=== PATIENT | male | born 1965 | race Caucasian/White ===

== ENCOUNTER 2024-03-28 09:58 | Outpatient (CLI) | payer MEDICARE, SELFPAY ==
--- NOTE | ~2024-03-28 | CT_ITS ---
CT Scan of the Chest without Contrast: Clinical Indication: Lung cancer screening, nicotine dependence Technique: Contiguous sections were acquired throughout the chest without intravenous contrast. Dose reduction technique was used on this scan by utilizing automated exposure control and iterative recon struction technique. The dose-length product (DLP) was 224.40 mGy-cm. Findings: There is no evidence of any significant mediastinal, hilar or axillary lymphadenopathy. Coronary leisa ry calcification present. There is no evidence of pleural or pericardial effusion. There is moderate emphysema at the lung apices/upper lobes with mild chronic interstitial changes in the lungs. Small calcified left upper lobe granuloma present. No discrete noncalcified pulmonary nodu le seen. Images through the upper abdomen reveal no abnormalities. There is DISH of the thoracic spine. Impression: Lung RADS 2: Benign appearance. [address] advised. Reviewed, dictated and finalized at [facility]. VISION SERVICER Impression: Lung RADS 2: Benign appearance. [address] advised.
--- OUTSIDE RECORDS SUMMARY | 2024-03-28 10:25 | XMS_ITS | Patient Health Record ---
Author Organization [facility] Address [address] [place] [address] Care Team Providers Care Urban Forester Name Role Phone Cornelius CHAMPION, Kodi Unavailable Unavailable Reason For Referral No Information Plan Of Treatment No Information Insurance Providers Payer Name Payer Address Payer Phone Subscriber Number Group Number Insured Name Patient Relationship to Insured Coverage Start Date Coverage End Date [facility] [address] [address] [place] [address] [id number] Rodríguez Gloria Self - patient is the insured 0
== END 2024-03-28 09:59 | disposition home or self-care (01) ==
LOC: ANHIMG 10:06
PROVIDERS: PCP Internal Medicine; Visit Provider Internal Medicine
DX: Z12.2 Encounter for screening for malignant neoplasm of respiratory organs (principal); F17.210 Nicotine dependence, cigarettes, uncomplicated
CPT/HCPCS: 71271

== ENCOUNTER 2024-05-03 10:29 | Outpatient (CLI) | payer MEDICARE, SELFPAY ==
--- NOTE | 2024-05-03 10:42 | ECG_ITS ---
Test Date: 2024-05-03 10:56:06 Measurements Intervals [place] Rate: 75 P: 48 ME: 176 QRS: 10 QRSD: 112 T: 38 QT: 349 QTc: 391 Interpretive Statements SINUS RHYTHM ANTEROSEPTAL MYOCARDIAL INFARCTION [40+ ms Q WAVE IN V1-V4], OF INDETERMINATE AGE No previous ECG available for comparison Electronically Signed On 05-03-2024 11:08:13 CDT by Clemencia Cazares M.D.
--- OUTSIDE RECORDS SUMMARY | 2024-05-03 11:35 | XMS_ITS | Patient Health Record ---
Author Organization [facility] Address [address] [place] [address] Care Team Providers Care Framing Mill Operator Name Role Phone Cornelius CHAMPION, Kodi Unavailable Unavailable Reason For Referral No Information Plan Of Treatment No Information Insurance Providers Payer Name Payer Address Payer Phone Subscriber Number Group Number Insured Name Patient Relationship to Insured Coverage Start Date Coverage End Date [facility] [address] [address] [place] [address] [id number] Rodríguez Gloria Self - patient is the insured 0
--- OUTSIDE RECORDS SUMMARY | 2024-05-03 11:35 | XMS_ITS | CONTINUITY OF CARE DOCUMENT ---
Author Name vikas bean Address Unknown Organization [facility] Address [address] [place] [address] [address] [place] [address] Phone [phone] Care Team Providers Care Horticulture Professor Name Role Phone vikas bean Unavailable Unavailable
== END 2024-05-03 10:30 | disposition home or self-care (01) ==
LOC: ANHSURGERY 10:39
PROVIDERS: PCP Internal Medicine; Visit Provider Surgery
DX: Z01.818 Encounter for other preprocedural examination (principal); K40.90 Unilateral inguinal hernia, without obstruction or gangrene, not specified as recurrent; F17.210 Nicotine dependence, cigarettes, uncomplicated; I25.2 Old myocardial infarction
CPT/HCPCS: 36415; 86850; 86900; 86901; 93005

== ENCOUNTER 2024-05-08 00:36 | Day surgery (SDC) | payer MEDICARE, SELFPAY ==
[2024-04-29 09:19] VITALS: BMI 36.6
--- NOTE | 2024-04-29 09:32 | PC.NURSE ---
Report to the Outpatient Waiting Room, entrance under the green pavilion located off [facility], at time _1000_ on date _[id number]_. Planned Procedure Time: _1200_.? Time changes happen often and if your time is changed the preop area will call you the afternoon before. - You and your visitor will be asked to self-screen and do not enter if you have any COVID symptoms. Please call surgeon if you need to reschedule. - A mask is optional within the hospital at this time. Patients may have clear liquids (water, carbonated beverages, clear teas, apple juice) until 3 hours prior to surgery with a maximum of 20 ounces. - No food from midnight until time of surgery and no smoking, or chewing tobacco (or any form of nicotine). No chewing gum, candy or mints. Take only the following medications with a SIP of water on the morning of surgery: ___Oxycodone____ DO NOT STOP ANY OF YOUR OTHER PRESCRIPTION MEDICATIONS PRIOR TO SURGERY EXCEPT THE FOLLOWING Hold all vitamins and supplements for 3 days per anesthesiologist. Medications to discontinue per physician Date to take last dose Please no make-up, nail yi, hairspray, perfume, deodorant, or body powder the day of surgery.? No jewelry (including any body piercings) or valuables the day of surgery, leave them at home.? Please take a shower or bath the night before, or the morning of, surgery with an antibacterial soap.? Wear comfortable, loose fitting clothing.? - Jewelry must be removed prior to entering the operating room.? Rings and piercings that are not removed may be cut off. - The hospital will not accept responsibility for valuables.? - Please leave all valuables, including medications, at home the day of surgery. If you are going home after surgery, a licensed water taxi driver must drive you home.? - NO public transportation without another adult if you receive anesthesia. - We recommend that an adult stay with you for 24 hours following discharge. - We also recommend that you do not drive, make important decision, drink alcoholic beverages, or take any drugs that were not prescribed by your health care provider for at least 24 hours after your discharge time. Follow any additional instructions given to you from your surgeon. Telephone instructions given to __TIm___and asked if any additional questions and then verbalized understanding. Patient advised to call surgeon office or pre surgery nurse liaison [phone] if any additional questions.
[2024-05-08] VITALS (9 sets, daily range): BP systolic 149–168; BP diastolic 80–93; PULSE 76–88; RESP 16–20; TEMP 36.1–36.4; O2SAT 95–100
--- OUTSIDE RECORDS SUMMARY | 2024-05-08 00:38 | XMS_ITS | Patient Health Record ---
Author Organization [facility] Address [address] [place] [address] Care Team Providers Care Campus President Name Role Phone Cornelius CHAMPION, Kodi Unavailable Unavailable Reason For Referral No Information Plan Of Treatment No Information Insurance Providers Payer Name Payer Address Payer Phone Subscriber Number Group Number Insured Name Patient Relationship to Insured Coverage Start Date Coverage End Date [facility] [address] [address] [place] [address] [id number] Rodríguez Gloria Self - patient is the insured 0
--- OUTSIDE RECORDS SUMMARY | 2024-05-08 00:38 | XMS_ITS | CONTINUITY OF CARE DOCUMENT ---
Author Name vikas bean Address Unknown Organization [facility] Address [id number] [place] [address] [address] [place] [address] Phone [phone] Care Team Providers Care Supervisor Beehive Kiln Name Role Phone vikas bean Unavailable Unavailable
[2024-05-08] MEDS: KETOROLAC 15 MG/ML VIAL (*BKC) IV PUSH (10:30)
[2024-05-08] MEDS: LACTATED RINGERS 1,000 ML 30 ML IV CONT ×2 (10:30→14:37)
[2024-05-08] MEDS: ACETAMINOPHEN 500 MG TABLET 1000 MG PO (10:35)
--- NOTE | 2024-05-08 12:02 | WPDHPUPDATE1 ---
History and Physical Update Update Date/Time: 05/08/24 12:02 History and Physical has been reviewed, including an updated exam of the patient. There are NO changes in the patient's condition. Risks, benefits, and alternatives have been discussed and questions answered. Patient agrees to proceed with procedure.
--- NOTE | 2024-05-08 12:02 | PM.IMHP ---
H&P: HPI History of Present Illness Date/Time: 05/08/24 12:02 Chief Complaint: Left inguinal hernia, right neck cyst Narrative: This is a 58-year-old man who presents for left inguinal hernia repair and excision of right neck cyst. He reports no changes since last seen in the office. Review of Systems Review of Systems: All systems reviewed & are unremarkable except as noted in HPI and below Constitutional: Constitutional: Denies chills, Denies fever(s), Denies headache(s) and Denies weight loss Eyes: Eyes: Denies change in vision ENT: Denies dizziness, Denies headache(s), Denies neck mass and Denies throat swelling Cardiovascular: Cardiovascular: Denies chest pain, Denies lightheadedness and Denies dyspnea Respiratory: Respiratory: Denies cough, Denies dyspnea and Denies wheezing Gastrointestinal: Gastrointestinal: Denies abdominal pain, Denies change in bowel habits, Denies nausea and Denies vomiting Genitourinary: Genitourinary: Denies hematuria and Denies dysuria Musculoskeletal: Musculoskeletal: Reports as per HPI Integumentary/Breasts: Skin/Breast: Reports as per HPI Neurologic: Denies dizziness and Denies headache(s) Allergic/Immunologic: Allergic/Immunologic: Denies throat swelling and Denies wheezing PMFSH Past Medical History Medical History (Updated 03/29/24 @ 10:31 by Korin Nuñez [facility]) Gastric ulcer Asthma Surgical History Surgical History History of back surgery Family History Family History (Updated 03/29/24 @ 10:09 by Radha Grady MA) Mother Lung cancer Sibling Lung cancer Thyroid disorder Sibling Hypertension Social History Social History (Updated 03/29/24 @ 10:09 by Radha Grady MA) Smoking packs per day: 1 Smoking cigarettes per day: 20.0 Years smoked: 42 Smoking pack-years: 42.00 Smoking status: Current every day smoker Tobacco type: cigarettes Alcohol intake: current Substance use: never Current Housing: Decline to Answer Concerned About Future Housing: Decline to Answer Difficulty Paying Gas/Electric Bills: Decline to Answer Difficulty Paying for Meds: Decline to Answer Currently Unemployed: Decline to Answer Education: Decline to Answer Difficulty w/ Childcare or Family Care: Decline to Answer Living arrangements: with family Spiritual care concerns: No Meds Home Medications and Allergies Home Medications ?Medication ?Instructions ?Recorded ?Confirmed ?Type oxycodone 15 mg tablet 15 mg PO Q8H PRN pain 03/15/24 05/08/24 History sennosides 8.6 mg-docusate sodium 1 tab-cap PO HS 04/29/24 05/08/24 History 50 mg tablet (Senexon-S) Allergies Allergy/AdvReac Type Severity Reaction Status Date / Time No Known Allergies Allergy Verified 05/08/24 10:50 Vital Signs Vital Signs - 24 hr 05/08/24 10:16 Temperature 97.6 F Pulse Rate 83 Respiratory Rate 16 Blood Pressure 149/88 H Pulse Oximetry 100 Oxygen Delivery Room Air Exam Const: General: no acute distress and alert Orientation/consciousness: patient oriented x3 HENMT: Head: normocephalic and atraumatic Ears: hearing grossly normal bilaterally Face/Nose/Sinus: Normal nares present Mouth: Yes Normal oral and palatal mucosa present Eyes: Periorbital: periorbital findings normal Sclera: sclerae normal EOM: EOMs intact bilaterally Neck: Neck: normal visual inspection, no lymphadenopathy and trachea midline Other: Right submandibular neck mass measuring 2.5 cm consistent with a cyst Chest: Chest palpation & inspection: normal inspection of the chest Resp: Effort & Inspection: normal respiratory effort Auscultation: clear to auscultation bilaterally Cardio: Jugular venous distension: no JVD Rate: regular rate Rhythm: regular rhythm Heart sounds: S1 normal heart sound present and S2 normal heart sound present Peripheral pulses: Peripheral pulses 2+ throughout GI: Inspection: normal to inspection GI Palp: Yes Soft to palpation, No Tenderness to palpation present (GI), No Guarding due to palpation present (GI) and No Rebound tenderness present Percussion: Yes normal to percussion Auscultation: normal bowel sounds : General: Yes no CVA tenderness Scrotum: inguinal hernia on the left Back/Spine/Pelvis: Back: no CVA tenderness Neuro: General: patient oriented x3, no focal motor deficits and CN's II-XI intact bilaterally Cognition (Neuro): normal cognition Speech: normal speech Motor exam (neuro): 5/5 motor strength present throughout Extrem: General: capillary refill normal and no clubbing, cyanosis or edema Assessment and Plan Assessment and plan (1) Left inguinal hernia: Code(s): K40.90 - Unilateral inguinal hernia, without obstruction or gangrene, not specified as recurrent Status: Acute Assessment and Plan: I have recommended laparoscopic left inguinal hernia repair with mesh, da Michael assisted and excision of 2.5 cm right neck mass. I have discussed the procedure, risks, benefits, and alternatives with the patient. All questions answered. No changes since last seen in office. (2) Mass of right side of neck: Code(s): R22.1 - Localized swelling, mass and lump, neck Status: Acute
--- NOTE | 2024-05-08 12:46 | P.PNAN_ITS ---
Anes - Initial Pre Proc Eval Procedure: Operation Date: 05/08/24 12:00 Proposed Procedures p Laparoscopic Left Inguinal Hernia Repair with Mesh, Davinci Assisted - Giovanni White DO s Excision Right Neck Mass - Giovanni White DO Date/Time: 05/08/24 12:46 Surgeon: Giovanni White DO Pre Op Diagnosis: Left Ing Hernia, Right Neck Mass (2.5 ) Patient Data Age: 58 Gender: M Height: 1.63 m Weight: 92.4 kg Last Vital Signs Temp 97.6 F 05/08/24 10:16 Pulse 83 05/08/24 10:16 Resp 16 05/08/24 10:16 BP 149/88 H 05/08/24 10:16 Pulse Ox 100 05/08/24 10:16 O2 Del Method Room Air 05/08/24 10:16 Allergies Allergy/AdvReac Type Severity Reaction Status Date / Time No Known Allergies Allergy Verified 05/08/24 10:50 Home Medications ?Medication ?Instructions ?Recorded ?Confirmed ?Type oxycodone 15 mg tablet 15 mg PO Q8H PRN pain 03/15/24 05/08/24 History sennosides 8.6 mg-docusate sodium 1 tab-cap PO HS 04/29/24 05/08/24 History 50 mg tablet (Senexon-S) Patient hx anesthesia problems: none Family hx anesthesia problems: none Results Review: All pre-operative results and documents have been reviewed as part of the pre- operative evaluation. [facility] Past Medical History Medical History (Updated 03/29/24 @ 10:31 by Korin Nuñez CMA) Gastric ulcer Asthma Surgical History Surgical History History of back surgery Family History Family History (Updated 03/29/24 @ 10:09 by Radha Grady MA) Mother Lung cancer Sibling Lung cancer Thyroid disorder Sibling Hypertension Social History Social History (Updated 03/29/24 @ 10:09 by Radha Grady MA) Smoking packs per day: 1 Smoking cigarettes per day: 20.0 Years smoked: 42 Smoking pack-years: 42.00 Smoking status: Current every day smoker Tobacco type: cigarettes Alcohol intake: current Substance use: never Current Housing: Decline to Answer Concerned About Future Housing: Decline to Answer Difficulty Paying Gas/Electric Bills: Decline to Answer Difficulty Paying for Meds: Decline to Answer Currently Unemployed: Decline to Answer Education: Decline to Answer Difficulty w/ Childcare or Family Care: Decline to Answer Living arrangements: with family Spiritual care concerns: No Anes - Eval Final PreProcedure Day of Procedure 05/08/24 12:46 Patient weight: obese Heart: regular rate and rhythm Lungs: clear to auscultation Airway: Mallampati scale class II Neurological: alert and oriented Last oral intake: >/= 8 hours ASA classification: II Emergent: no Anesthetic plan: proceed Anesthesia type and monitoring: general ETT and standard monitoring Results Review: All pre-operative results and documents have been reviewed as part of the pre- operative evaluation. Informed Consent: The patient's anesthetic plan and its attendant risks and benefits were discussed with the patient/family/POA. Questions were solicited and answers provided to the satisfaction of the patient/family/POA.
[2024-05-08] MEDS: ceFAZolin 2 GM/D5W 50 ML 2 GM/50 ML BAG IVPB (12:55)
[2024-05-08] MEDS: BUPIVACAINE/EPINEPHRINE 0.5% 50 ML VIAL 30 ML INFILTRATE (13:37)
--- NOTE | 2024-05-08 14:58 | P.OP_ITS ---
Procedure Note - Detailed Date of Procedure 05/08/24 Pre-op Diagnosis Left Ing Hernia, Right Neck Mass (2.5 cm) Post-op Diagnosis Same (Indirect left inguinal hernia, 2.5 cm right neck mass) Procedure Performed 1. Laparoscopic left inguinal hernia repair with mesh, da Michael assisted 2. Excision of 2.5 cm right neck mass Surgeon Giovanni White, DO Anesthesia General and Local (0.5% bupivacaine with epinephrine) Indications This is a 58-year-old man who presented with a left groin bulge that he 1st noticed about 3 months ago. He is having discomfort in this region with activity. He was found to have a large left inguinal hernia exam. Discussions were made with the patient about treatment options and decision was made to proceed with robotic assisted laparoscopic left inguinal hernia repair with mesh. The patient also had a right neck mass that had been present for couple years. It has grown larger and has findings consistent with a cyst. Decision was made to proceed with excision of the 2.5 cm right neck mass at the same time as the hernia repair. Findings Robotic assisted laparoscopic left inguinal hernia repair with mesh was performed. The patient was found to have a large indirect left inguinal hernia containing a loop of sigmoid colon. With careful traction I was able to reduce the sigmoid colon from within the hernia defect. A robotic transabdominal preperitoneal approach was utilized for repair. Once a wide enough preperi toneal pocket was created and the hernia sac was reduced, I then placed a large left 3DMax mid mesh overlying the entire left myopectineal orifice. There was no evidence of a right inguinal hernia. I then proceeded with excision of the right neck mass after the hernia repair was completed. An elliptical incision was made around the right neck mass. This appeared to be consistent with a epidermal inclusion cyst within the subcutaneous region. The cyst was completely excised and sent to the lab for pathology. Description of Procedure Procedure as well as risks, benefits, and alternatives were discussed with the patient. Written consent was obtained and placed in chart prior to procedure. Patient was brought back to surgical suite. He was placed supine on operating table. Time-out was done to confirm patient and procedure. He was then intubated by Anesthesia Department. His abdomen was prepped and draped in sterile fashion using chlorhexidine prep. 0.5% bupivacaine with epinephrine was infiltrated at each location for incision. An 8 mm incision was made in the left lateral abdomen, and a 5 mm Optiview trocar was advanced through the abdominal layers under direct visualization. Once inside the abdominal cavity, carbon dioxide insufflation was used to create a pneumoperitoneum. A camera was inserted and the abdominal cavity was inspected. The patient was placed in slight Trendelenburg position. An 8 millimeter incision was made on the right lateral abdomen and an 8 millimeter trocar was inserted under direct visua lization. Another 8 millimeter incision was made just superior to the umbilicus and an 8 millimeter trocar was inserted under direct visualization. The 5 mm port was then removed and this was replaced with another 8 mm robotic port. The robotic arms were brought up to the patient's bedside and secured to the ports. The camera and instruments were inserted. I then moved over to the robotic con sole and took control of the camera and instruments. After careful inspection of the abdominal cavity, I began scoring the peritoneum along the left lower quadrant using scissors with electrocautery. The preperitoneal plane was entered and this was carefully dissected caudally along the inferior epigastric vessels. Careful dissection with scissors with electrocautery and blunt dissection was used to continue this dissection. I dissected far enough laterally to allow for mesh placement, and also dissected medially to identify the pubic arch and Gene's ligament. The hernia sac was identified and carefully dissected posteriorly. The cord contents were also identified and the peritoneum was carefully dissected far enough posteriorly to allow for mesh placement. Once an adequate pocket was created, I then placed the mesh within the preperitoneal pocket and carefully unfolded it. The mesh was centered on the hernia defect with adequate overlap circumferentially. The inferior edge of the mesh was inspected to ensure that it was far enough away from the peritoneal edge. The mesh appeared in proper position overlying the entire myopectineal orifice. The mesh was secured using 3-0 Vicryl simple interrupted sutures in Egne's ligament, the superior medial edge, and superior lateral edge of the mesh. The peritoneum was then closed over the mesh using a 3-0 V-lock running absorbable suture. The robotic instruments were removed. The robotic arms were disengaged from the ports and moved away from the bedside. The patient was flattened out in bed, the ports were removed under direct visualization, and the pneumoperitoneum was released. The skin of the incisions was approximated using 4-0 Monocryl subcuticular suture, and Exofin glue was applied on top. The right neck area was prepped and draped in sterile fashion using chlorhexidine prep. 0.5% bupivacaine with epinephrine was infiltrated locally around the mass. A 2.5 cm elliptical incision was made around the mass using a 15 blade scalpel. The mass was sharply dissected free from the subcutaneous attachments using the 15 blade scalpel. The mass was completely excised and sent to the lab for pathology. Electrocautery was then used for hemostasis. No other abnormalities were noted. The deep dermis was reapproximated using 3-0 Vicryl inverted interrupted sutures. The skin was approximated using 4-0 Monocryl running subcuticular suture. Exofin glue was then applied on top. The patient was awakened from anesthesia, extubated, and transferred to recovery. Implants Large left 3DMax mid mesh Estimated Blood Loss 10 Pathology Yes (right neck mass) Complications No immediate complications Condition Stable Disposition Same day [facility] Billing Surgery - Charge Forward: Surgery Billing
[2024-05-08] MEDS: fentaNYL CITRATE INJ (*CRX) 100 MCG/2 ML VIAL 25 MCG IV PUSH ×2 (15:01→15:09)
[2024-05-08] MEDS: oxyCODONE HCL (*CRX) 5 MG TAB IR PO (15:57)
== END 2024-05-08 16:15 | disposition home or self-care (01) ==
PROVIDERS: PCP Internal Medicine; Visit Provider Surgery
PROC: 8E0Y4CZ Robotic Assisted Procedure of Lower Extremity, Percutaneous Endoscopic Approach (ICD-10-PCS; CPT 49650; principal; 2024-05-08 12:00)
PROC: (CPT 49650; 2024-05-08 12:00)
DX: K40.90 Unilateral inguinal hernia, without obstruction or gangrene, not specified as recurrent (principal); L72.0 Epidermal cyst; J45.909 Unspecified asthma, uncomplicated; F17.210 Nicotine dependence, cigarettes, uncomplicated; E66.9 Obesity, unspecified; Z68.35 Body mass index [BMI] 35.0-35.9, adult; Z79.891 Long term (current) use of opiate analgesic; Z98.890 Other specified postprocedural states; Z98.1 Arthrodesis status; Z87.11 Personal history of peptic ulcer disease; Z80.1 Family history of malignant neoplasm of trachea, bronchus and lung
CPT/HCPCS: 49650; 11423; S2900; 88304; A9270; C1781; J0690; J1100; J1885; J2003; J2250; J2405; J2704; J3010; J7120